=== PATIENT | female | born 1985 | race Two or more races ===

== ENCOUNTER 2022-06-19 02:22 | Emergency (ER) | payer OTHER ==
[~2022-06-19] VITALS: Ht 167.6 cm; Wt 68.5 kg
[~2022-06-19 02:22] MED LIST: PRENATA CHEWAB1 EACH PO; SYNTHROID150 MCG PO
[2022-06-19] MEDS ORDERED: ZYRTEC10 MG PO (07:39)
== END 2022-06-19 07:53 ==
LOC: ER 02:22
DX: L50.9 Urticaria, unspecified (principal)

== ENCOUNTER 2022-07-09 04:47 | Outpatient (CLI) | payer OTHER ==
[~2022-07-09 04:47] MED LIST changes: +ZYRTEC10 MG PO
== END 2022-07-09 12:18 | disposition home or self-care (01) ==
LOC: OBS/DEL 04:47
PROVIDERS: ATTEND Obstetrics & Gynecology
DX: O26.893 Other specified pregnancy related conditions, third trimester (principal); O36.8130 Decreased fetal movements, third trimester, not applicable or unspecified; Z3A.38 38 weeks gestation of pregnancy

== ENCOUNTER 2022-07-12 14:04 | Inpatient (IN) | payer OTHER ==
[~2022-07-12] VITALS: Ht 165.1 cm; Wt 68.5 kg
== END 2022-07-18 12:26 | disposition home or self-care (01) | DRG 788 ==
LOC: OBS/DEL 14:04 → LDR 07-13 12:49 → OB/GYN 07-13 12:49 → LDR 07-13 17:13 → OB/GYN 07-15 09:05
PROVIDERS: ADMIT Obstetrics & Gynecology; ATTEND Obstetrics & Gynecology
PROC: 4A1HXCZ Monitoring of Products of Conception, Cardiac Rate, External Approach (ICD-10-PCS; 2022-07-13)
PROC: 10D00Z1 Extraction of Products of Conception, Low, Open Approach (ICD-10-PCS; principal; 2022-07-15 09:30)
DX: O36.8130 Decreased fetal movements, third trimester, not applicable or unspecified (principal); O69.0XX0 Labor and delivery complicated by prolapse of cord, not applicable or unspecified; O69.89X0 Labor and delivery complicated by other cord complications, not applicable or unspecified; Z3A.39 39 weeks gestation of pregnancy; Z37.0 Single live birth; Z20.822 Contact with and (suspected) exposure to COVID-19

== ENCOUNTER 2024-08-16 17:08 | Emergency (ER) | payer OTHER ==
[~2024-08-16] VITALS: Ht 165.1 cm; Wt 61.2 kg
== END 2024-08-16 19:12 | disposition home or self-care (01) ==
LOC: ER 17:10
DX: O36.8120 Decreased fetal movements, second trimester, not applicable or unspecified (principal); Z3A.18 18 weeks gestation of pregnancy

== ENCOUNTER 2024-12-31 10:15 | Inpatient (IN) | payer OTHER ==
[~2024-12-31] VITALS: Ht 167.6 cm; Wt 3.2 kg
[2024-12-31 11:47] LABS: BASO % 0.4 % (0.1-1.2); EOS # 0.27 (0.04-0.54); EOS % 3.3 % (0.7-7.0); LYMPH # 1.56 (1.18-3.74); LYMPH % 19.0 % (19.3-53.1); MEAN PLATELET VOLUME 11.30 fl (9.4-12.4); MONO # 0.45 (0.24-0.82); MONO % 5.5 % (4.7-12.5); NEUT # 5.83 (1.56-6.13); NEUT % 70.8 % (34.0-71.1); RED CELL DISTRIBUTION WIDTH 14.1 % (11.6-14.4)
[2024-12-31 12:22] LABS: INR 0.95
[2024-12-31 13:05] LABS: ALT/SGPT 21.0 U/L (12-78); AST/SGOT 15.0 U/L (15-37); BILIRUBIN TOTAL 0.34 mg/dL (0.3-1.2); BUN CREA RATIO 20.0 (7.0-25.0); CREATININE SERUM 0.45 mg/dL (0.55-1.02); GFR 156.78; GLOBULINA 3.7 G/DL (2.4-3.5); GLUCOSE FASTING 80.0 mg/dL (65-100); OSMOLALITY SERUM 277.0 MOSM/KG (275-295)
[2025-01-07 12:57] VITALS: BP 101/70
[2025-01-07] MEDS ORDERED: ERYTHROMYCIN BASE OPHT 1GM EACH TUBE OP ONE (18:15)
[2025-01-07] MEDS ORDERED: CITRIC ACID/SODIUM CITRATE 30 ML BLIST.PACK PO ONE (18:15)
[2025-01-07] MEDS ORDERED: OXYTOCIN 10 UNITS/ML VIAL IV ONE (18:15)
[2025-01-07] MEDS ORDERED: CEFAZOLIN SODIUM 1,000 MG VIAL IV ONE (18:15)
[2025-01-07] MEDS ORDERED: MORPHINE SULFATE 4 MG/ML CARTRIDGE IV PRN (19:00)
[2025-01-07] MEDS ORDERED: OXYTOCIN 1,000 ML IV SCH (19:00)
[2025-01-07] MEDS ORDERED: METHYLERGONOVINE MALEATE 0.2 MG/ML AMPUL IM ONE (19:30)
[2025-01-07 22:26] VITALS: BP 98/67
[2025-01-07 23:49] VITALS: BP 98/67
[2025-01-08 08:00] VITALS: BP 114/70
[2025-01-08 11:14] LABS: BASO % 0.5 % (0.1-1.2); EOS # 0.18 (0.04-0.54); EOS % 1.4 % (0.7-7.0); LYMPH # 1.31 (1.18-3.74); LYMPH % 10.2 % (19.3-53.1); MEAN PLATELET VOLUME 12.00 fl (9.4-12.4); MONO # 0.60 (0.24-0.82); MONO % 4.7 % (4.7-12.5); NEUT # 10.62 (1.56-6.13); NEUT % 82.7 % (34.0-71.1); RED CELL DISTRIBUTION WIDTH 14.2 % (11.6-14.4)
[2025-01-08] MEDS ORDERED: FF) RHO(D) IMMUNE GLOBULIN (POM) IM ONE (11:15)
[2025-01-08 16:30] VITALS: BP 114/74
[2025-01-09 01:48] VITALS: BP 100/65
[2025-01-09] MEDS ORDERED: OxyCODONE HCL 5 MG TABLET (ROXICODONE) PO PRN (06:00)
[2025-01-09 08:43] VITALS: BP 99/60
[2025-01-09 16:00] VITALS: BP 97/62
[2025-01-10 00:32] VITALS: BP 160/68
[2025-01-10 08:00] VITALS: BP 91/62
== END 2025-01-10 14:01 | disposition home or self-care (01) | DRG 788 ==
LOC: OB/GYN 01-07 07:00 → O/R 01-07 14:14 → OB/GYN 01-07 18:53
PROVIDERS: ADMIT Obstetrics & Gynecology; ATTEND Obstetrics & Gynecology
PROC: 0DNW0ZZ Release Peritoneum, Open Approach (ICD-10-PCS; 2025-01-07)
PROC: 4A1HXCZ Monitoring of Products of Conception, Cardiac Rate, External Approach (ICD-10-PCS; 2025-01-07)
PROC: 10D00Z1 Extraction of Products of Conception, Low, Open Approach (ICD-10-PCS; principal; 2025-01-07 07:00)
DX: O99.892 Other specified diseases and conditions complicating childbirth (principal); O34.211 Maternal care for low transverse scar from previous cesarean delivery; N73.6 Female pelvic peritoneal adhesions (postinfective); Z3A.39 39 weeks gestation of pregnancy; Z37.0 Single live birth